=== PATIENT | male | born 1975 | race African-American/Black ===

== ENCOUNTER 2016-10-03 09:19 | Emergency (ER) | payer OTHER ==
--- NOTE | ~2016-10-03 | CT4 ---
[facility] A Service of [facility] & [facility] RADIOLOGY TEXT RESULTS PATIENT: MARCIO LI LOCATION: [facility] : 73 UNIT #: [id number] AGE: [address]: Maria Dolores Eli APRN SEX: M ORDER DR: [id number] [facility] [address] [place], [place] [address] [id number] MR#: [id number] Acc #: [id number] NAME: MARCIO LI : 1975 SEX: M STUDY DATE/TIME: 10/03/2016 11:11 UNIT: [facility] ROOM: STUDY DESCRIPTION: CT Abd and Pelv Wo Cont Attending Physician: Maria Dolores Eli A.P.R.N. Ordering Physician: Ed Doctor [id number] [facility] Primary Care Physician: Joi Bethea M.D. MEDICAL IMAGING REPORT This report is preliminary unless electronic signature is present EXAM CT abdomen and pelvis without contrast to 10/03/2016 1111 hours HISTORY 41-year-old man complaining of bilateral back pain around kidneys since yesterday with pressure and pain with urination, sharp stabbing pain and hematuria today. COMPARISON 06/16/2015 TECHNIQUE Helical noncontrasted images were obtained from the lung bases through the pubic symphysis. Sagittal and coronal reconstructions were performed. Total exam DLP 975 mGy-cm. This CT exam was performed with one or more of the following radiation dose reduction techniques: automatic control, adjustment of mA and/or kV according to patient size, and iterative reconstruction. FINDINGS Images through the lung bases are clear. There is no pericardial or pleural fluid. The distal esophagus is normal. Noncontrasted images through the abdomen demonstrate a normal appearance to the liver and spleen. The pancreas and bile ducts are normal. There are clips consistent with prior cholecystectomy. The adrenal glands are normal. The kidneys have a normal noncontrasted appearance. There is no renal or ureteral calculus. There is no dilatation of the renal collecting systems or ureters. The slight distension of the left ureter and the stranding around the left ureter seen on 06/16/2015 has resolved. [facility] A Service of [facility] & [facility] RADIOLOGY TEXT RESULTS PATIENT: MARCIO LI LOCATION: [facility] : 73 UNIT #: [id number] AGE: [address]: Maria Dolores Eli APRN SEX: M ORDER DR: The stomach and small bowel are normal. The terminal ileum is normal. There is no evidence of appendicitis. The colon is unremarkable. IMPRESSION 1. Negative noncontrasted CT of the abdomen and pelvis. There are no renal or ureteral calculi. Previous dilatation of the left ureter with stranding around the ureter seen on the CT 06/16/2015 has resolved. 2. Normal appearance to the stomach, small bowel, colon and appendix. Dictated by... Deborah Velasquez M.D. THIS IS AN ELECTRONICALLY VERIFIED REPORT Deborah Velasquez M.D. at 10/04/2016 9:22 AM KAMINI/nati TD: 10/03/2016 13:11 JOB #: [id number] MEDICAL IMAGING REPORT Page 1 of 1 COPY
[~2016-10-03 09:19] MED LIST: CIPRO PO; LORTAB 5/500 TA1 TA2 PO; PHENERGAN PO
[2016-10-03 09:20] LABS: URINE SOURCE CLEAN CATCH
[2016-10-03 09:23] LABS: BASOPHIL% 0.7 % (0-2.5); EOSINOPHIL# 0.1 X10e3 (0-0.7); HEMATOCRIT 33.9 % (38.0-50.0); HEMOGLOBIN 11.1 gm/dL (13.0-16.0); LYMPHOCYTE# 1.4 X10e3 (1.0-3.5); LYMPHOCYTE% 21.6 % (17.0-45.0); MEAN CELL VOLUME 79.4 FL (83-96); MEAN CORPUSCULAR HEMOGLOBIN 25.9 PG (28-34); MEAN CORPUSCULAR HGB CONC 32.7 g/dL (30-36); MEAN PLATELET VOLUME 8.8 FL (6.5-11.5); MONOCYTE# 0.4 X10e3 (0-1.0); MONOCYTE% 6.1 % (3.0-12.0); NEUTROPHIL# 4.5 X10e3 (1.5-7.1); NEUTROPHIL% 69.6 % (40-75); PLATELET COUNT 230 X10e3 (140-420); RED BLOOD COUNT 4.27 X10e (3.90-5.60); RED CELL DISTRIBUTION WIDTH 13.9 % (11.0-15.5); WHITE BLOOD COUNT 6.5 X10e3 (4.0-10.5)
[2016-10-03 09:24] LABS: DIFF IND NO
[2016-10-03 09:25] LABS: URINE APPEARANCE CLEAR; URINE BILIRUBIN NEG (NEG); URINE BLOOD 1+ (NEG); URINE COLOR YELLOW; URINE GLUCOSE 100 MG/DL (NEG); URINE KETONE NEG (NEG); URINE LEUKOCYTE ESTERASE NEG (NEG); URINE NITRATE NEG (NEG); URINE PROTEIN 3+ (NEG); URINE SPECIFIC GRAVITY 1.013 (1.003-1.035); URINE UROBILINOGEN 0.2 MG/DL (NEG)
[2016-10-03 09:27] LABS: URINE BACTERIA AUWI NEG (NEGATIVE); URINE SQUAMOUS EPITHELIAL CELL FEW /[HPF]
[2016-10-03 09:47] LABS: CULTURE INDICATED? NO
[2016-10-03 09:56] LABS: ALBUMIN SERUM 2.3 g/dL (3.5-5.0); BILIRUBIN, DIRECT 0.1 mg/dL (0.0-0.2); BILIRUBIN,INDIRECT 0.4 mg/dL (0.0-0.9); BILIRUBIN,TOTAL 0.5 mg/dL (0.2-2.0); BUN/CREATININE RATIO 13.07; CALCIUM SERUM 8.3 mg/dL (8.4-10.2); CREATININE SERUM 2.6 mg/dL (0.6-1.4); GLOM FILT RATE Estimated 33.8 mL/min (>60); PROTEIN TOTAL SERUM 5.8 g/dL (6.0-8.3)
== END 2016-10-03 12:30 | disposition home or self-care (01) ==
LOC: CED 09:19
PROVIDERS: Nurse Practitioner
DX: I12.9 Hypertensive chronic kidney disease with stage 1 through stage 4 chronic kidney disease, or unspecified chronic kidney disease (principal); N18.9 Chronic kidney disease, unspecified; E11.9 Type 2 diabetes mellitus without complications; Z90.49 Acquired absence of other specified parts of digestive tract
CPT/HCPCS: 36415; 74176; 80048; 80076; 81003; 83690; 85025; 96374; 96375; 99284; J2270; J2405

== ENCOUNTER → 2016-10-30 | Outpatient (CLI) | payer OTHER ==
--- NOTE | ~2016-10-30 | US77 ---
[facility] A Service of [facility] RADIOLOGY TEXT RESULTS PATIENT: MARCIO LI LOCATION: [facility] : 73 UNIT #: [id number] AGE: [address]: Robles Connors MD SEX: M ORDER DR: [id number] [facility] [address] [place], [place] [address] [id number] O MR#: [id number] Acc #: [id number] NAME: MARCIO LI : 1975 SEX: M STUDY DATE/TIME: 10/30/2016 13:16 UNIT: [facility] ROOM: STUDY DESCRIPTION: US Kidney Bilateral Complete Attending Physician: Robles Connors M.D. Referring Physician: Robles Connors M.D. Ordering Physician: Robles Connors M.D. Primary Care Physician: Joi Bethea M.D. MEDICAL IMAGING REPORT This report is preliminary unless electronic signature is present EXAM Renal ultrasound 10/30/2016 HISTORY Chronic kidney disease Stage 4. Hypertension. Diabetes. Hyperlipidemia. Abnormal renal function tests. BUN of 34, elevated creatinine of 2.6, abnormally low eGFR of 33.8. FINDINGS The right kidney measures 12.6 cm, while the left kidney measures 12.1 cm in longitudinal dimensions. There is no evidence of hydronephrosis or nephrolithiasis. No cystic or solid mass lesions were seen on either kidney. There is increased renal cortical echogenicity characteristic of medical renal disease. Images of the bladder are normal. IMPRESSION 1. Bilateral increase in renal cortical echogenicity characteristic of medical renal disease. No evidence of hydronephrosis. 2. Images of the bladder are normal. Dictated by... Darryl Ann M.D. THIS IS AN ELECTRONICALLY VERIFIED REPORT Darryl Ann M.D. at 10/31/2016 2:10 PM KRT/pcl TD: 10/30/2016 15:54 JOB #: [id number] [facility] A Service of [facility] RADIOLOGY TEXT RESULTS PATIENT: MARCIO LI LOCATION: [facility] #: [id number] : [birth year] UNIT #: [id number] AGE: [address]: Robles Connors MD SEX: M ORDER DR: MEDICAL IMAGING REPORT Page 1 of 1 COPY
== END | disposition home or self-care (01) ==
LOC: CGUS 12:48
DX: N18.9 Chronic kidney disease, unspecified (principal); R93.41 Abnormal radiologic findings on diagnostic imaging of renal pelvis, ureter, or bladder
CPT/HCPCS: 76770

== ENCOUNTER 2017-03-19 12:33 | Emergency (ER) | payer OTHER ==
[~2017-03-19] VITALS: Ht 177.8 cm; Wt 144.2 kg
--- NOTE | ~2017-03-19 | EKG ---
PATIENT: MARCIO LI UNIT #: [id number] Ventricular Rate: 82 BPM Atrial Rate: 82 BPM P-R Interval: 162 ms QRS Duration: 68 ms Q-T Interval: 368 ms QTC Calculation(Bezet): 429 ms P [place]: 27 degrees Calculated R [place]: -23 degrees Calculated T [place]: -6 degrees Diagnosis Line: Normal sinus rhythm Diagnosis Line: Minimal voltage criteria for LVH, may be normal Diagnosis Line: variant Diagnosis Line: Nonspecific T wave abnormality Diagnosis Line: Abnormal ECG Diagnosis Line: No previous ECGs available Diagnosis Line: Confirmed by LORI GONZALEZ MD ([id number]) on Diagnosis Line: 03/19/2017 3:27:48 PM INTERPRETING MD: CARLOS DEVLIN
[2017-03-19 13:17] LABS: URINE SOURCE CLEAN CATCH
[2017-03-19 13:20] LABS: BASOPHIL% 0.8 % (0-2.5); EOSINOPHIL# 0.1 X10e3 (0-0.7); EOSINOPHIL% 2.2 % (0.0-7.0); HEMATOCRIT 28.4 % (38.0-50.0); HEMOGLOBIN 9.6 gm/dL (13.0-16.0); LYMPHOCYTE# 1.2 X10e3 (1.0-3.5); LYMPHOCYTE% 19.7 % (17.0-45.0); MEAN CELL VOLUME 77.1 FL (83-96); MEAN CORPUSCULAR HEMOGLOBIN 26.2 PG (28-34); MEAN PLATELET VOLUME 8.7 FL (6.5-11.5); MONOCYTE# 0.4 X10e3 (0-1.0); MONOCYTE% 6.3 % (3.0-12.0); NEUTROPHIL# 4.4 X10e3 (1.5-7.1); PLATELET COUNT 179 X10e3 (140-420); RED BLOOD COUNT 3.69 X10e (3.90-5.60); RED CELL DISTRIBUTION WIDTH 13.7 % (11.0-15.5); WHITE BLOOD COUNT 6.3 X10e3 (4.0-10.5)
[2017-03-19 13:21] LABS: DIFF IND NO
[2017-03-19 13:34] LABS: URINE APPEARANCE CLEAR; URINE BILIRUBIN NEG (NEG); URINE BLOOD TRACE (NEG); URINE COLOR YELLOW; URINE GLUCOSE NEG (NEG); URINE KETONE NEG (NEG); URINE LEUKOCYTE ESTERASE NEG (NEG); URINE NITRATE NEG (NEG); URINE PH 6.5 (5-8); URINE PROTEIN 3+ (NEG); URINE SPECIFIC GRAVITY 1.014 (1.003-1.035); URINE UROBILINOGEN 0.2 MG/DL (NEG)
[2017-03-19 13:36] LABS: URINE BACTERIA AUWI NEG (NEGATIVE); URINE SQUAMOUS EPITHELIAL CELL OCC /[HPF]
[2017-03-19 13:37] LABS: AMPHETAMINE NEG (NEG); BARBITURATES NEG (NEG); BENZODIAZEPINES NEG (NEG); COCAINE NEG (NEG); MARIJUANA NEG (NEG); OPIATES NEG (NEG); TRICYCLIC ANTIDEPRESSANTS NEG (NEG); U METHADONE NEG (NEG)
[2017-03-19 13:51] LABS: ALBUMIN SERUM 2.5 g/dL (3.5-5.0); ALKALINE PHOSPHATASE 77 U/L (32-92); ALT (SGPT) 16 U/L (10-40); AST (SGOT) 16 U/L (10-42); BILIRUBIN,TOTAL 0.2 mg/dL (0.2-2.0); BLOOD UREA NITROGEN 44 mg/dL (9-23); BUN/CREATININE RATIO 11.28; CARBON DIOXIDE 23 mmol/L (22-31); CHLORIDE 110 mmol/L (100-111); CREATININE SERUM 3.9 mg/dL (0.6-1.4); GLOM FILT RATE Estimated 20.5 mL/min (>60); GLUCOSE FASTING 127 mg/dL (70-110); LIPASE 34 U/L (22-51); POTASSIUM 4.1 mmol/L (3.5-5.1); PROTEIN TOTAL SERUM 5.9 g/dL (6.0-8.3); SODIUM 141 mmol/L (135-145)
[2017-03-19 13:52] LABS: BILIRUBIN, DIRECT <0.1 mg/dL (0.0-0.2); BILIRUBIN,INDIRECT 0.1 mg/dL (0.0-0.9)
== END 2017-03-19 15:29 | disposition home or self-care (01) ==
LOC: CED 12:33
PROVIDERS: Emergency Medicine
DX: N18.9 Chronic kidney disease, unspecified (principal); E10.9 Type 1 diabetes mellitus without complications; Z79.4 Long term (current) use of insulin
CPT/HCPCS: 36415; 80048; 80076; 80307; 81003; 82947; 83690; 85025; 93005; 99284